=== PATIENT | female | born 1955 | race Caucasian/White ===

== ENCOUNTER 2025-07-10 07:05 | Day surgery (SDC) | payer BC, SELFPAY ==
[2025-06-27 07:56] VITALS: BMI 24.6
[2025-06-27 09:12] LABS: Hematocrit 39.4 % (37.0-47.0); Hemoglobin 12.8 g/dL (12.0-16.0); Mean Corp Hgb Conc. 32.5 g/dL (33.0-37.0); Mean Corpuscular Volume 98.5 fL (81.0-99.0); Platelet Count 252 10^3/uL (130-400); Red Cell Dist. Width 13.2 % (11.5-14.5)
[2025-06-27 09:18] LABS: INR 0.84; PT 12.0 Sec (11.4-14.6)
[2025-06-27 09:19] LABS: APTT 27.5 Sec (23.4-35.0)
[2025-06-27 09:20] LABS: Blood Urea Nitrogen 19 mg/dl (7-17); Calcium 9.4 mg/dl (8.4-10.2); Carbon Dioxide 25 mmol/L (22-30); Chloride 108 mmol/L (98-107); Estimated Creatinine Clearance 42 ml/min; Glucose 87 mg/dl (70-99); Potassium 4.7 mmol/L (3.5-5.1); Sodium 139 mmol/L (135-145); eGFR > 60.00
[2025-07-10 13:15] VITALS: BP 124/70
[2025-07-10 13:40] VITALS: BMI 24.6
[2025-07-10] MEDS: NORMOSOL-R/PLASMALYTE-A 1000 IV (13:48)
--- NOTE | 2025-07-10 14:14 | W.SUR.PREOP ---
Pre-Operative Surgical Note
-
I have examined this patient prior to the performance of the scheduled procedure.
The patient's condition is unchanged from the time of the current History and
Physical and the patient is able to undergo the scheduled procedure.
--- NOTE | 2025-07-10 15:45 | W.IMMPOSTOP ---
Surgical Immed Post Op Note
-
Primary Surgeon: Dr. Betty Treadwell DMD, MD
Assisting Surgeon: None
Pre-op Diagnosis: Caries, tooth pain
Post-op Diagnosis: Caries, tooth pain
Procedure Performed: Extraction of teeth #2,3,19
Anesthesia Type: MAC
Specimen / Cultures: None
Estimated Blood Loss: 2cc
Complications: None
Operative Findings: Extraction of teeth #2,3,19 without issues.
[2025-07-10 15:46] VITALS: BP 126/70
[2025-07-10 16:00] VITALS: BP 130/59
[2025-07-10 16:15] VITALS: BP 123/70
[2025-07-10 16:30] VITALS: BP 135/75
[2025-07-10 16:45] VITALS: BP 116/68
== END 2025-07-10 17:32 | disposition home or self-care (01) ==
LOC: SDS 07:05
PROVIDERS: ATTENDING PHYSICIAN Dentist Oral and Maxillofacial Surgery; FAMILY PHYSICIAN Family Medicine
DX: K02.9 Dental caries, unspecified (principal); Z86.73 Personal history of transient ischemic attack (TIA), and cerebral infarction without residual deficits; Z86.69 Personal history of other diseases of the nervous system and sense organs
CPT/HCPCS: D7210 ×3; 71046; 80048; 85027; 85610; 85730; 93005